=== PATIENT | female | born 1995 | race American Indian/Alaskan Native ===

== ENCOUNTER 2021-09-19 01:10 | Emergency (ER) | payer SELFPAY ==
[2021-09-19] MEDS ORDERED: LIDOCAINE PF 100 MG/5 ML (CARDIAC SYRINGE) IV ONE (01:14)
[2021-09-19] MEDS ORDERED: ETOMIDATE 20 MG/10 ML INJ IV ONE (01:14)
[2021-09-19] MEDS ORDERED: EPINEPHrine 1 MG/10 ML SYRINGE ONE (01:15)
[2021-09-19] MEDS ORDERED: ATROPINE 0.1% (1 MG/10 ML) CARDIAC SYRINGE ONE (01:15)
[2021-09-19] MEDS ORDERED: ROCURONIUM 50 MG/5 ML INJ IV ONE ×2 (01:15→01:16)
[2021-09-19] MEDS ORDERED: SODIUM CHLORIDE 0.9% 1000 ML 2,000 ML ONE (01:20)
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
== END 2021-09-19 06:28 ==
LOC: ED 01:10
DX: I46.9 Cardiac arrest, cause unspecified (principal)
CPT/HCPCS: 31500; 32551; 92950; 99291; J0171; J0461; J3490; J7030; Q0162; J2001